=== PATIENT | female | born 1935 | race Caucasian/White ===

== ENCOUNTER 2016-09-12 11:10 | Emergency (ER) | payer MEDICARE, BC ==
[~2016-09-12 11:10] MED LIST: ASPIRIN325 M3 PO; BACTRIM DS TAB1 EAC2 PO; BENAZEPRIL HCL40 MG; BL MAXEPA CAPSU1 CAP; CALCIUM + VITA1 EAC4 PO; CALCIUM 600 W/V1 TAB; CALCIUM WITH VI1 TAB; CULTURELLE1 EAC1 PO; ENTERIC COATED325 M; FISH OIL 1,2001 EAC5 PO; HYDROCHLOROTHIA25 MG; KADIAN30 MG; LYRICA50 MG; MULTIVITAMIN1 TAB; MULTIVITAMINS1 EAC6 PO; OXYCODONE-APAP1 TAB; SIMVASTATIN40 M1 PO; TOPROL XL100 M1 PO; TOPROL XL100 MG; TYLENOL PM EX-1 EAC4 PO
[2016-09-12] MEDS ORDERED: NEURONTIN600 M1 PO ×2 (11:26→14:15)
[2016-09-12] MEDS ORDERED: ULTRAM50 M1 PO (14:15)
== END 2016-09-12 14:20 ==
LOC: EDMED 11:10
DX: G89.29 Other chronic pain (principal); M54.5 Low back pain
CPT/HCPCS: J1885